=== PATIENT | female | born 1960 | race Caucasian/White ===

== ENCOUNTER 2016-10-05 16:43 | Emergency (ER) | payer OTHER ==
[~2016-10-05] VITALS: Ht 165.1 cm; Wt 79.5 kg
[~2016-10-05 16:43] MED LIST: CLAR10T PO
[2016-10-05 16:53] VITALS: BP 118/72; PULSE 100; RESP 18; O2SAT 97
[2016-10-05] MEDS ORDERED: Ondansetron 2 mg/mL 2 mL Inj ONE (18:09)
[2016-10-05 18:30] LABS: BASOPHILS % (AUTO) 0.2 % (0-3); EOSINOPHILS % (AUTO) 0.1 % (0-5); MONOCYTES % (AUTO) 6.2 % (4-12); Mean Corpuscular Hemoglobin 29.3 pg (27.0-35.0); Mean Corpuscular Volume 88.2 fL (81-100); NEUTROPHILS % (AUTO) 88.4 % (40-74); Platelet Count 267 bil/L (150-400)
--- NOTE | 2016-10-05 18:52 | ED.REPORT ---
HPI-Abd Pain F 40 and Over Date of Service Oct 05, 2016 ED Provider: Giovani Tipton MD A 56 year old female presents to the ED complaining of diffuse body aches onset last night. Pain is described as cramping with right side body pain being greater than the left side. Pain has been constant since onset but has improved slightly since the patient has been in the ED. Associated symptoms include severe chills, difficulty drinking, and diarrheax4. Her last episode of diarrhea was at 1030 today. She denies any diaphoresis, vomit, blood in stool, cough, sore throat, or rhinorrhea. 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 She slept 13 hours to try and beat the sickness, felt better yesterday, and went to her job at the school, but felt severe sickness last night. Her and kids have been sick recently. She reports no recent long distance travel, antibiotic use, or major surgical procedures. She took Tylenol two days ago and takes airborne daily, but denies any other medication use. She does not smoke. Nursing Notes Stated Complaint: DIARRHEA, RLQ ABDOMINAL PAIN, BODY PAIN, WEAKNESS Chief Complaint: Female Abdominal Pain Nursing Notes Reviewed: Yes (Popset, meds not reconciled) Allergies: Coded Allergies: Penicillins (Verified Allergy, Intermediate, rash, 10/05/16) Sulfa (Sulfonamide Antibiotics) (Verified Allergy, Intermediate, rash, 10/05) erythromycin base (Verified Allergy, Intermediate, rash, 10/05/16) Uncoded Allergies: flu shot (Allergy, Severe, systemic illness for >1 mo, 08/16/09) PCP told her to never have another flu shot Scheduled Loratadine-Expunged Drug, Do Not Renew! (Loratadine-Expunged Drug, Do Not Renew! ) 10 Mg Tablet 10 MG PO PRN Scheduled PRN Ondansetron ODT (Ondansetron ODT) 8 Mg Tab.rapdis 8 MG PO Q4H PRN PRN For Nausea General Time Seen by MD: 18:50 Chief Complaint Other (Diffuse body aches) Hx Obtained From: Patient Arrived By: Walk-in Sudden in Onset?: Yes Onset Occurred: Yesterday Symptom Duration: Since onset Recent Healthcare: No recent doctor visit Similar Sx Previous: No Past Medical History Past Medical History None reported. Past Surgical History None reported. Smoking History Never Smoker Ambulatory Status Independent Review of Systems Diffuse body aches. Difficulty drinking. Denies blood in stool. Denies rhinorrhea. Denies sore throat. Constitutional: Reports: Chills Respiratory: Denies: Non-productive cough GI: Reports: Diarrhea Complete sys rev & neg: except as marked. Skin: Denies Diaphoresis Physical Exam Vital Signs Vital Signs (First) Date Time Temp Pulse Resp B/P Pulse Ox O2 Delivery O2 Flow Rate FiO2 10/05/16 16:53 37.2 100 18 118/72 97 Room Air Initial VS: Reviewed, Vital signs normal General/Constitutional: Awake, Alert Appears to have chills, appears mildly dehydrated. Does not appear toxic. Patient reports that pain has resolved. Respiratory / Chest: Atraumatic, Breath sounds NL, Breath sounds = bilat, No respiratory distress, No rales, No rhonchi, No wheezing Cardiovascular: Heart rate NL, Regular rhythm, Heart sounds NL, No gallop, No murmurs, No rubs Abdomen: Atraumatic, Non-tender Reports no deep tenderness to RLQ. Back: Atraumatic, Full range of motion Head / Eyes: Atraumatic, Normocephalic, PERRL, EOMI ENT: Atraumatic, Mucous membranes moist Skin: Atraumatic, Color NL, No rash, Warm, Dry Neck: Atraumatic, Full range of motion Upper Extremity / MS: Atraumatic, Full range of motion Lower Extremity / Pelvis / MS: Atraumatic, Full range of motion Interpretation & Diagnostics Lab Results Interpretation Result Diagram: 10/05/16181910/05/16 182 Test 10/05/16 18:20 10/05/16 20:40 White Blood Count 10.3th/mm3 (3.8-10.1) Red Blood Count 4.74mil/mm3 (3.90-5.20) Hemoglobin 13.9g/dL (12.0-15.6) Hematocrit 41.8% (35.0-46.0) Mean Corpuscular Volume 88.2fL (81-100) Mean Corpuscular Hemoglobin 29.3pg (27.0-35.0) Mean Corpuscular Hemoglobin Concent 33.3% (32.0-37.0) Red Cell Distribution Width 12.8% (12.3-15.4) Platelet Count 267bil/L (150-400) Neutrophils (%) (Auto) 88.4% (40-74) Lymphocytes (%) (Auto) 4.9% (14-46) Monocytes (%) (Auto) 6.2% (4-12) Eosinophils (%) (Auto) 0.1% (0-5) Basophils (%) (Auto) 0.2% (0-3) Sodium Level 138mEq/L (134-144) Potassium Level 3.9mEq/L (3.5-5.2) Chloride Level 101mEq/L (97-108) Carbon Dioxide Level 19mmol/L (18-29) Blood Urea Nitrogen 11mg/dL (6-24) Creatinine 0.67mg/dL (0.57-1.00) Estimat Glomerular Filtration Rate 131mL/min (>59) Glucose Level 121mg/dL (60-99) Lactic Acid Level 1.3mmol/L (0.4-2.0) Calcium Level 9.0mg/dL (8.5-10.1) Magnesium Level 2.0mg/dL (1.6-2.6) Total Bilirubin 0.4mg/dL (0.0-1.2) Aspartate Amino Transf (AST/SGOT) 18U/L (0-50) Alanine Aminotransferase (ALT/SGPT) 16U/L (0-32) Alkaline Phosphatase 64U/L (25-150) Total Protein 7.3g/dL (6.4-8.4) Albumin 4.4g/dL (3.4-5.0) Lipase 21U/L (13-60) Hold Nazario Top Tube Received (Received) Hold Urine Received (Received) Lab Results Interpretation: CBC normal CP with normal Influenza negative Lactic acid normal Urine dip negative Re-Eval/Medical Decision Med Decision/Clinical Course This is a 56-year-old female presents stating of chills, terrible severe body aches (" even my hair hurts") and and some diarrhea. She just felt very lousy, and therefore came in. She is very fatigued, slightly uncomfortable-but does not appear toxic. She did develop a borderline fever while in the department. However she denies respiratory symptoms, lungs are clear, she has no cough. Her abdomen is soft and entirely nontender on several exams with no signs of an acute surgical process or clinical findings necessitate abdominal imaging. She has no rashes or exanthems. She does appear dehydrated. An IV was placed and she was hydrated, she received Toradol, Tylenol and a small dose of Dilaudid with marked improvement and felt much better. Laboratory testing was unremarkable. The patient felt much better, so the initial plan after 2 L of hydration was discharge her home-however on recheck of the vitals, she was not febrile, nontoxic, and stated she felt much better her blood pressure is now hypotensive. He does report her blood pressure came in the low end of normal, but this was significantly low. So she was held for further observation, and additional hydration. Again she stated that she felt infinitely better than when she first arrived, her blood pressure did improve with fluids, but is still on the low end of normal mid 90s. Not tachycardic, she has no lactic acidosis, her fever has resolved, she feels much better. She is now able to ambulate without any dizziness, she still says she feels tired- but again reiterates that she is much, much improved compared to the original presentation. She does not wish to be admitted to the hospital, and the fact that she can ambulate, is not dizziness or near syncopal, indicates that I think she is a reasonable For discharge to home. Evidence of a bacterial infection at this time, everything points of likely viral etiology. However, careful routine precautions reviewed with both the patient and her . A work note has also been provided. Discharge instructions, return precautions are also reviewed. She is discharged in much improved condition. Source of Hx: Old records Re-Evaluation/Progress : Time of Eval: 21:23 Re-Evaluation/Progress Note: Rechceked Patient. Her body aches have stopped and she was able to go to the bathroom. Explained diagnosis, test results, and plan for discharge. Patient understands and agrees with the plan. All questions addressed. Differential Diagnosis: Negative: Abdominal aortic aneurysm, Acute abdominal pain, Appendicitis, Bowel obstruction, Ectopic preg ruptured, Ectopic , Esophageal rupture, Gun shot wound abdomen, Hepatitis, Pancreatitis, Pelvic inflam disease, Peritonitis, Porphyria, Pyelonephritis, Stab wound abdomen, Urinary tract infection Counseled Regarding: Diagnosis, Lab results, Need for follow-up, When/why to return to ED Discharge & Departure Primary Impression: Viral syndrome Additional Impressions: Diarrhea Dehydration Myalgia Disposition: Home Discharge Condition All VS Reviewed: Yes Condition: Improved Additional Instructions: 1. Blood tests were reassuringly normal. Your influenza swab was negative. 2. Symptoms and exam strongly suggest a viral syndrome. Symptoms are expected to improve with time. 3. Take ibuprofen 400-800mg three times a day to help with fevers and body caches. 4. You can also take hydrocodone/APAP 5/325 1-2 tabs up to every 4-6 hours as needed for pain. This medication does have Tylenol in it as well while the fevers and chills. This medicine does contain a narcotic and causes some drowsiness-no driving for at least 4-6 hours after taking. Additionally this medicine should help stop the diarrhea as well. 5. You can take ondansetron 8 mg-left is also tongue-up to every 4 hours if needed for nausea. (You can take this prior to taking the hydrocodone) 6. Drink plenty of fluids. It is okay to eat (diet as tolerated), but it is important to stay well-hydrated. 7. Symptoms are expected to be improving over the next few days. Return if new , worsening, or uncontrolled symptoms occur. 8. If you need a primary care provider follow-up with [facility] Referrals: [facility] (PCP) Eulogio Attestation Portions of this note were transcribed by Eric Tracy. I, Dr. Tipton, personally performed the history, physical exam and medical decision-making; I reviewed and confirmed the accuracy of the information in the transcribed note. Signed by Eric Krishnan, 10/05/162007 copies to: Giovani Wang MD Oct 05, 2016 18:52 Eric Tracy Oct 05, 2016 19:21
[2016-10-05] MEDS ORDERED: Ondansetron 2 mg/mL 2 mL Inj IVPUSH ONE (19:25)
[2016-10-05] MEDS ORDERED: HYDROmorphone 0.5 mg/0.5 mL iSecure Syringe IVPUSH PRN (19:25)
[2016-10-05] MEDS ORDERED: _Ondansetron ODT 4 mg Tablet PO PRN (21:25)
[2016-10-05] MEDS ORDERED: _HYDROcodone/APAP 5-325 mg Tablet PO PRN (21:25)
[2016-10-05] MEDS ORDERED: ONDA8TAB10 PO (21:57)
[2016-10-05] MEDS ORDERED: 0.9% Sodium Chloride 1,000 ML IV ONE (22:15)
[2016-10-05 22:50] VITALS: BP 83/54; PULSE 67; RESP 16; O2SAT 96
[2016-10-05 23:18] VITALS: BP 90/59; PULSE 62; RESP 16; O2SAT 95
== END 2016-10-05 23:21 | disposition home or self-care (01) ==
LOC: SED 16:43
DX: B34.9 Viral infection, unspecified (principal); E86.0 Dehydration; I95.9 Hypotension, unspecified; Z88.2 Allergy status to sulfonamides; Z88.1 Allergy status to other antibiotic agents; Z88.0 Allergy status to penicillin; Z88.7 Allergy status to serum and vaccine
CPT/HCPCS: 36415; 80053; 83605; 83690; 83735; 85025; 87804; 96361; 96374; 96375; 99285; J1170; J2405